=== PATIENT | female | born 2000 ===

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

== ENCOUNTER 2018-03-25 11:08 | Emergency (ER) | payer MEDICAID, OTHER ==
[2018-03-25 11:12] VITALS: RESP 18; TEMP 99; O2SAT 100
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
[2018-03-25] MEDS ORDERED: Lidocaine 5% Patch TD ONE ×2 (13:38→13:52)
[2018-03-25 14:03] VITALS: BP 121/67; PULSE 78
== END 2018-03-25 14:07 | disposition home or self-care (01) ==
LOC: H.ER 11:08 → SUPCPDRO 11:08 → H.ER 14:07
DX: S16.1XXA Strain of muscle, fascia and tendon at neck level, initial encounter (principal); V43.52XA Car driver injured in collision with other type car in traffic accident, initial encounter; Y92.410 Unspecified street and highway as the place of occurrence of the external cause